=== PATIENT | female | born 1980 | race Two or more races ===

== ENCOUNTER 2024-11-24 21:17 | Emergency (ER) | payer SELFPAY ==
[2024-11-24 21:18] VITALS: BMI 32.8
--- NOTE | 2024-11-24 21:20 | EKG_ITS ---
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
[2024-11-24 21:24] VITALS: BP 148/89; PULSE 100; RESP 26; TEMP 36.7; O2SAT 100
--- NOTE | 2024-11-24 22:18 | XR_ITS ---
Examination: PA chest single view Technique: Upright PA chest single view Exam date and time: November 24, 2024 1022 hrs. Comparison August 07, 2017 Indications: Onset shortness of breath today Findings: Large retrocardiac gastric hernia Normal heart size No lobar pneumonia or pulmonary edema Intact osseous structures Impression: No lobar pneumonia or pulmonary edema
--- NOTE | 2024-11-24 22:18 | PD.EDSOB ---
ED SOB =RME/HPI General Chief Complaint: Shortness of Breath/Dyspnea Stated Complaint: SOB Time Seen by Provider: 11/24/24 22:10 Arrival date/time: 11/24/24 21:17 44F with no significant PMH presents to ED with 1 day of generalized weakness, dizziness, and some SOB, especially when she walks/stands a long time. Patient denies URI symptoms and heavy vaginal bleeding. Limitations: no limitations Related Data Previous Rx's ?Medication ?Instructions ?Recorded ibuprofen 600 mg tablet 600 mg PO Q6-8HRPRN PRN ##30 06/07/13 omeprazole 20 mg capsule,delayed 20 mg PO QDAY 14 days ##0 10/07/16 release Allergies Allergy/AdvReac Type Severity Reaction Status Date / Time NKA* Allergy Uncoded 10/07/16 18:59 Review of Systems Review of Systems Systems Reviewed: All systems reviewed, normal except as documented Constitutional Constitutional: Reports system reviewed and no additional complaints, except as documented, Reports as per HPI, Denies fever(s), Denies headache(s) and Reports weakness ENT Ears, Nose, Mouth, and Throat: Reports as per HPI, Denies disequilibrium, Denies headache(s) and Reports vertigo Cardiovascular Cardiovascular: Reports system reviewed and no additional complaints, except as documented, Denies chest pain and Reports dyspnea Respiratory Respiratory: Reports system reviewed and no additional complaints, except as documented, Reports as per HPI, Denies cough and Reports dyspnea Gastrointestinal Gastrointestinal: Reports system reviewed and no additional complaints, except as documented, Denies abdominal pain, Denies nausea and Denies vomiting Neurologic Neurologic: Reports system reviewed and no additional complaints, except as documented, Denies confusion, Denies disequilibrium, Denies headache(s), Reports vertigo and Reports weakness Psychiatric Psychiatric: Denies confusion Past Medical History Social History SMOKING STATUS: Never smoker ED Exam General Limitations: Present no limitations General appearance: Present alert and in no apparent distress Head Head exam: Present atraumatic Eye Eye exam: Present normal appearance, PERRL and EOMI ENT ENT exam: Present normal exam, normal oropharynx and mucous membranes moist Neck Neck exam: Present normal inspection, full ROM and trachea midline Chest Chest inspection: Present normal inspection and symmetric chest wall rise Respiratory Respiratory exam: Present normal lung sounds bilaterally Cardiovascular Cardiovascular exam: Present regular rate, normal rhythm and normal heart sounds Abdominal Exam Abdominal exam: Present soft and normal bowel sounds Extremities Exam Extremities exam: Present normal inspection and full ROM Back Exam Back exam: Present normal inspection and full ROM Neurological Exam Neurological exam: Present alert, oriented X3 and CN II-XII intact Psychiatric Psychiatric exam: Present normal affect and normal mood Skin Skin exam: Present warm, dry, intact and normal color Course Quality Measures none Orders Category Date Time Status EKG (ED ONLY) *Do not use* NOW Care 11/24/24 21:20 Completed EKG (ED Only) Stat Exams 11/24/24 21:20 Draft XR chest 1V portable Stat Exams 11/24/24 22:18 Ordered CBC Stat Lab 11/24/24 22:10 Ordered CMP [Comprehensive Metabolic Panel] Stat Lab 11/24/24 22:11 Ordered D-Dimer Stat Lab 11/24/24 22:13 Ordered Drug Screen,Urine Stat Lab 11/24/24 22:11 Ordered HCG Qualitative,Urine Stat Lab 11/24/24 22:11 Ordered Troponin I Stat Lab 11/24/24 22:11 Ordered Type and Screen Stat Lab 11/24/24 22:11 Ordered Urinalysis Stat Lab 11/24/24 22:11 Ordered Vital Signs Vital signs: Vital Signs Temperature 98.0 F 11/24/24 21:24 Pulse Rate 100 11/24/24 21:24 Respiratory Rate 26 H 11/24/24 21:24 Blood Pressure 148/89 H 11/24/24 21:24 Pulse Oximetry (%) 100 11/24/24 21:24 Oxygen Delivery Method Room Air 11/24/24 21:24 O2 at 100% on RA and WNLs Shortness of Breath / Dyspnea MDM Narrative MDM Narrative:: 44F with no significant PMH presents to ED with 1 day of generalized weakness, dizziness, and some SOB, especially when she walks/stands a long time. Patient denies URI symptoms and heavy vaginal bleeding. Physical exam reveals normal pupil response and EOM. ENT and lungs clear. CN II-XII grossly intact. Gait normal. Patient is afebrile, calm, and alert. EKG is sinus tach of 105. Patient data External records reviewed:: [facility] previous records Clinical information provided by:: patient Social determinants that could affect healthcare access:: none Patient has the following chronic illnesses:: none How is presenting disease/condition affected by chronic disease/condition?: no chronic disease Evaluation data The following diagnostics were reviewed and interpreted by me:: lab results, radiology exam(s) and EKG tracing(s) Lab and/or radiology exams considered but not ordered:: ordered Interpretation Summary: above Diagnosis Shortness of Breath Differential Diagnosis: acute exacerbation of chronic obstructive airways disease, congestive heart failure, community acquired pneumonia, asthma with exacerbation, pulmonary embolism and other (anemia, CVA/TIA) Discharge Plan Prescriptions/Referrals Prescriptions/Med Rec: No Action ibuprofen 600 MG tablet 600 mg PO Q6-8HRPRN PRNQty: 30 0RF omeprazole 20 MG capsule,delayed release(DR/EC) 20 mg PO QDAY 14 Days Qty: 0 0RF Referrals: No Primary/Family,Physician [Primary Care Provider] - In 1 week Patient/Caregiver Discharge Instructions Print Language: Danish
--- NOTE | 2024-11-24 22:20 | XR_ITS ---
Examination: CT brain head without contrast. 2-D sagittal coronal reconstructions Date and time of exam:November 24, 2024 10:53 PM Indications: Onset weakness today CTDI: vol (mGy):46.5 DLP: (mGycm):878 Technique: Multiple CT axial sections of the brain have been obtained, 5 mm slice thickness. Contrast has not been administered. 2-D sagittal, coronal reconstructions have been obtained Low dose protocols were performed. One or more of the following dose reduction techniques were used; automated exposure control, adjustment of the mA and/or KV according to patient size, use of iterative reconstruction technique. Findings: No significant ventricular enlargement. Intra-axial or extra-axial hemorrhage density is not seen. No mass effect or midline shift Basal cisterns are not remarkable. Fourth ventricle is midline. Cranial vault intact. Large retention cyst in the maxillary antra Impression: Negative for acute hemorrhage, mass effect or midline shift Advise clinical correlation and follow-up accordingly
--- NOTE | 2024-11-24 22:34 | PD.EDRME ---
Rapid Medical Screening Exam [facility] Arrival date/time: 11/24/24 21:17 44F with history of hiatal hernia presents to ED with 1 day of generalized weakness, dizziness, and some SOB, especially when she walks/stands a long time. Patient denies URI symptoms and heavy vaginal bleeding. Chief Complaint: Shortness of Breath/Dyspnea Time Seen by Provider: 11/24/24 22:10 Vital signs: Vital Signs Temperature 98.0 F 11/24/24 21:24 Pulse Rate 100 11/24/24 21:24 Respiratory Rate 26 H 11/24/24 21:24 Blood Pressure 148/89 H 11/24/24 21:24 Pulse Oximetry (%) 100 11/24/24 21:24 Oxygen Delivery Method Room Air 11/24/24 21:24
[2024-11-24 22:46] LABS: Collection Type, Urine Clean Catch
[2024-11-24 22:56] LABS: Bacteria,Urine Rare; Bilirubin,Urine Negative (Negative); Blood,Urine 2+ (Negative); Budding Yeast,Urine Present; Color,Urine Yellow (Lt Yel-Yel); Glucose, Urine Negative (Negative); Ketones,Urine Negative (Negative); Leukocyte Esterase,Urine Negative (Negative); Nitrite,Urine Negative (Negative); PH,Urine 5.5 (5.0-7.0); Protein,Urine Trace (Neg - Trace); RBC,Urine 6 /hpf (0-3); Specific Gravity,Urine 1.022 (1.001-1.035); Squamous Epithelial Cell,Urine 20 /hpf (0-5); WBC,Urine 7 /hpf (0-5)
[2024-11-24 22:57] LABS: Clarity,Urine Turbid (Clear/Hazy); HCG Qualitative,Urine Negative
[2024-11-24 23:00] LABS: Amphetamine/Methamp Scrn,U Negative (Negative); Barbiturate Screen,Urine Negative (Negative); Benzodiazepines Screen,Urine Negative (Negative); Benzoylecgonine Screen, Ur Negative (Negative); Fentanyl Screen,Urine Negative (Negative); Opiate Screen,Urine Negative (Negative); THC Screen,Urine Negative (Negative)
[2024-11-24 23:08] LABS: Basophils # (Auto) 0.1 Thou/mm3 (0.0-0.2); Basophils % (Auto) 1 % (0-2.5); Eosinophils # (Auto) 0.2 Thou/mm3 (0.0-0.5); Eosinophils % (Auto) 2 % (0-10); Immature Granulocytes % (Auto) 1 % (0-0); Immature Granulocytes Auto 0.06 Thou/mm3 (0.00-0.00); Lymphocytes # (Auto) 4.1 Thou/mm3 (1.0-4.8); Lymphocytes % (Auto) 34 % (10-50); Mean Corpuscular HGB Conc 24.1 g/dl (31.0-37.0); Mean Corpuscular Hemoglobin 13.9 pg (25.0-35.0); Mean Corpuscular Volume 58 fL (80-100); Monocytes # (Auto) 0.9 Thou/mm3 (0.0-0.8); Monocytes % (Auto) 8 % (0-12); Neutrophils # (Auto) 6.6 Thou/mm3 (1.8-7.7); Neutrophils % (Auto) 55 % (37-80); Nucleated Red Blood Cell # 0.13 Thou/mm3 (0.00-0.00); Nucleated Red Blood Cell % 1 /100 WBC (0); Platelet Count 673 Thou/mm3 (140-440); RDW Standard Deviation 46.1 fL (36.4-46.3); Red Blood Count 3.52 Miln/mm3 (4.00-5.20); White Blood Count 11.9 Thou/mm3 (3.6-11.0)
[2024-11-24 23:12] LABS: Hematocrit 20.3 % (36.0-46.0); Hemoglobin 4.9 g/dL (12.0-16.0)
--- NOTE | 2024-11-24 23:21 | PC.NURSE ---
Pt to room 4 right now from lobby; assumed care.
[2024-11-24 23:31] VITALS: BP 186/101; PULSE 91; RESP 17; O2SAT 100
--- NOTE | 2024-11-24 23:38 | EDNOTE_ITS ---
ED SOB =RME/HPI General Chief Complaint: Shortness of Breath/Dyspnea Stated Complaint: SOB Time Seen by Provider: 11/24/24 22:10 Source: patient Arrival date/time: 11/24/24 21:17 Mode of arrival: ambulatory Limitations: no limitations RME / HPI RME / HPI Narrative: 11/24/24 21:17 44F with history of hiatal hernia presents to ED with 1 day of generalized weakness, dizziness, and some SOB, especially when she walks/stands a long time. Patient denies URI symptoms and heavy vaginal bleeding. Dr. Tovar?s Main ED Evaluation: 44yo female presents to the ED for complaints of dizziness, lightheadedness, and shortness of breath. 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 She states she sat down, but her symptoms didn't subside, so she came in for evaluation. She denies any bloody/black stools, hematuria, hematemesis, abdominal pain or any other associated symptoms. She states she normally has heavy periods. She denies any history of anemia or previous blood transfusions. No known allergies. PCP: [facility] Related Data Previous Rx's ?Medication ?Instructions ?Recorded ibuprofen 600 mg tablet 600 mg PO Q6-8HRPRN PRN ##30 06/07/13 omeprazole 20 mg capsule,delayed 20 mg PO QDAY 14 days ##0 10/07/16 release Allergies Allergy/AdvReac Type Severity Reaction Status Date / Time NKA* Allergy Uncoded 10/07/16 18:59 Review of Systems Review of Systems Systems Reviewed: All systems reviewed, normal except as documented Past Medical History Social History SMOKING STATUS: Never smoker ED Exam Narrative Physical exam: GENERAL APPEARANCE: alert and oriented x 4, well-developed, well-nourished, no acute distress VITALS: All vitals were reviewed and the pulse ox is 100% on room air, which is normal according to my interpretation. HEENT: Normocephalic, atraumatic; pupils equal, round, reactive to light; EOMI; pale conjunctiva; mucous membranes pale, moist; oropharynx clear NECK: Supple LUNGS: CTABL; no wheezes, no rales, no rhonchi HEART: Regular rate, regular rhythm; normal S1, S2; no murmurs ABDOMEN: non distended; normal BS; soft, no tenderness, no guarding, no rebound; no masses, no organomegaly, no hernia BACK: no CVA tenderness EXTREMITIES: atraumatic; no edema NEUROLOGIC: awake; alert and oriented x4; cranial nerves II-XII grossly intact; no focal sensory or motor deficits PSYCHIATRIC: appropriate mood and affect SKIN: warm, dry, normal color; no rashes General Limitations: Present no limitations Course Quality Measures none Orders Category Date Time Status Mva Still Operator Q4H START 00 Care 11/24/24 23:57 Completed Continuous Pulse Oximetry NOW Care 11/24/24 23:57 Completed EKG (ED ONLY) *Do not use* NOW Care 11/24/24 21:20 Completed Transfuse,blood/blood products NOW Care 11/24/24 23:[address] head/brain wo con Stat Exams 11/24/24 22:20 Completed EKG (ED Only) Stat Exams 11/24/24 21:20 Draft XR chest 1V portable Stat Exams 11/24/24 22:18 Completed BNP [B-Type Natriuretic Peptide] Stat Lab 11/24/24 22:40 Completed CBC Stat Lab 11/24/24 22:40 Completed CMP [Comprehensive Metabolic Panel] Stat Lab 11/24/24 22:40 Completed Drug Screen,Urine Stat Lab 11/24/24 22:39 Completed Ferritin Stat Lab 11/24/24 23:56 Completed HCG Qualitative,Urine Stat Lab 11/24/24 22:39 Completed Path Review Blood Smear Stat Lab 11/24/24 22:40 Completed Reticulocyte Count Stat Lab 11/24/24 23:56 Completed TIBC [Total Iron Binding Capacity] Stat Lab 11/24/24 23:56 Completed Troponin I Stat Lab 11/24/24 22:40 Completed Type and Screen Stat Lab 11/24/24 22:40 Completed Urinalysis Stat Lab 11/24/24 22:39 Completed prbc [Red Blood Cells] Stat Lab 11/24/24 22:40 Completed Vital Signs Vital signs: Vital Signs Temperature 98.0 F 11/24/24 21:24 Pulse Rate 100 11/24/24 21:24 Respiratory Rate 26 H 11/24/24 21:24 Blood Pressure 148/89 H 11/24/24 21:24 Pulse Oximetry (%) 100 11/24/24 21:24 Oxygen Delivery Method Room Air 11/24/24 21:24 Shortness of Breath / Dyspnea MDM Narrative MDM Narrative:: Scribe Attestation: 11/24/24 - Bernie Headley am scribing for and in the presence of Dr. Tovar. 0600 Care signed out to Dr. Rm. Past medical, surgical, social and family history reviewed. Vitals and home medications reviewed. Results and treatment plan discussed. I will assume the care of the patient at this time and will follow the patient, pending completion of blood transfusion and final disposition. Patient data External records reviewed:: [facility] previous records (Per chart review, patient has no previous ED visits or admissions to this facility.) Clinical information provided by:: patient Social determinants that could affect healthcare access:: none Patient has the following chronic illnesses:: none How is presenting disease/condition affected by chronic disease/condition?: no chronic disease Evaluation data The following diagnostics were reviewed and interpreted by me:: lab results, radiology exam(s) and EKG tracing(s) Lab and/or radiology exams considered but not ordered:: none Interpretation Summary: WBC count is 11.9, HnH is low at 4.9/20.3, Platelets are 673, UA xx, UDS is negative, according to my interpretation. EKG done at 2124, sinus tachycardia, rate of 105, normal axis, no ectopy, no acute ischemia, according to my interpretation. [facility] Report Signed Patient: PALMER BURKS [facility]. Record#: [id number] Birthdate: 1980 Age/Sex: 44 / F Location: [facility] Attending Dr: Ordering Physician: Ayush Cruz PA-C Date of Service: 11/24/24 Procedure(s): XR chest 1V portable Accession Number(s): [id number] cc: Brice Tatum MD; NO PRIMARY/FAMILY,PHYSICIAN; Ayush Cruz PA-C~ Examination: PA chest single view Technique: Upright PA chest single view Exam date and time: November 24, 2024 1022 hrs. Comparison August 07, 2017 Indications: Onset shortness of breath today Findings: Large retrocardiac gastric hernia Normal heart size No lobar pneumonia or pulmonary edema Intact osseous structures Impression: No lobar pneumonia or pulmonary edema Dictated By: Brice Tatum MD Signed By: <Electronically signed by Brice Tatum MD in [place]> 11/24/24 2314 [facility] Report Signed Patient: PALMER BURKS Record#: [id number] Birthdate: 1980 Age/Sex: 44 / F [facility] Attending Dr: Ordering Physician: Ayush Cruz PA-C Date of Service: 11/24/24 Procedure(s): CT head/brain wo con Accession Number(s): [id number] cc: Brice Tatum MD; NO PRIMARY/FAMILY,PHYSICIAN; Ayush Cruz PA-C~ Examination: CT brain head without contrast. 2-D sagittal coronal reconstructions Date and time of exam:November 24, 2024 10:53 PM Indications: Onset weakness today CTDI: vol (mGy):46.5 DLP: (mGycm):878 Technique: Multiple CT axial sections of the brain have been obtained, 5 mm slice thickness. Contrast has not been administered. 2-D sagittal, coronal reconstructions have been obtained Low dose protocols were performed. One or more of the following dose reduction techniques were used; automated exposure control, adjustment of the mA and/or KV according to patient size, use of iterative reconstruction technique. Findings: No significant ventricular enlargement. Intra-axial or extra-axial hemorrhage density is not seen. No mass effect or midline shift Basal cisterns are not remarkable. Fourth ventricle is midline. Cranial vault intact. Large retention cyst in the maxillary antra Impression: Negative for acute hemorrhage, mass effect or midline shift Advise clinical correlation and follow-up accordingly Dictated By: Brice Tatum MD Signed By: <Electronically signed by Brice Tatum MD in OV> 11/24/24 2310 Medications / Prescriptions Medications or Prescriptions considered but not ordered:: none Medication administrations:: 3U PRBCs Consultations Consultation(s) initiated? (list below): No Diagnosis Shortness of Breath Differential Diagnosis: other (iron deficiency anemia, sideroblastic anemia, hemolytic anemia) Most likely diagnosis given after review of the tests above:: see clinical impression below Admission Indicated Admission indicated?: not indicated Admission Request Was there a request for admission?: No Disposition Plan Disposition Plan: Discharge Discharge Attestation Discharge Attestation: The patient and all family members were given an opportunity to ask questions and understood the discharge instructions. Discharge instructions specifically effects, indications for sooner follow up or return to the emergency department, and the expected course of current diagnosis. Patient condition: Stable Discharge Plan Plan Patient Disposition: HOME (Self Care) Prescriptions/Referrals Prescriptions/Med Rec: No Action ibuprofen 600 MG tablet 600 mg PO Q6-8HRPRN PRNQty: 30 0RF omeprazole 20 MG capsule,delayed release(DR/EC) 20 mg PO QDAY 14 Days Qty: 0 0RF Referrals: No Primary/Family,Physician [Primary Care Provider] - In 1 week Problem List Clinical Impression: Severe anemia, Dysfunctional uterine bleeding, Dizziness Patient/Caregiver Discharge Instructions Education Materials: Anemia, ED Dysfunctional Uterine Bleeding Additional Instructions: Follow up with your doctor within 2-3 days for reassessment. Return if your symptoms worsen. Print Language: [place]ralt[place] Stand Alone Forms: [facility]isa Award Info., Patient Portal Info Letter
[2024-11-24 23:42] LABS: Alanine Aminotransferase 24 U/L (10-49); Albumin, Serum 4.3 gm/dL (3.5-5.0); Albumin/Globulin Ratio 1.3 (1.2-2.2); Alkaline Phosphatase 177 U/L (46-116); Anion Gap 15 (7-16); Aspartate Amino Transferase 27 U/L (0-34); BUN/Creatinine Ratio 13 Ratio (12-20); Bilirubin,Total 0.7 mg/dL (0.3-1.2); Blood Urea Nitrogen 13 mg/dL (9-23); Calcium 9.5 mg/dL (8.3-10.6); Calcium (Corrected) 9.5 mg/dL (8.5-10.1); Carbon Dioxide 17.8 mMol/L (20.0-31.0); Chloride 105 mMol/L (98-107); Estimated Creatinine Clearance 80.9 mL/min (>60); Globulin 3.4 gm/dL (2.3-3.5); Glucose 101 mg/dL (74-106); Osmolality,Calculated 275 (275-295); Sodium 138 mMol/L (136-145); Total Protein 7.7 gm/dL (5.7-8.2); Troponin I < 0.020 ng/mL (0.0-0.045); eGFR > 60 See Note
--- NOTE | 2024-11-24 23:46 | PC.NURSE ---
Dr. Tovar at the bedside.
[2024-11-24 23:56] LABS: B-Type Natriuretic Peptide 64 pg/mL (0-100)
[2024-11-25] VITALS (14 sets, daily range): BP systolic 128–161; BP diastolic 69–107; PULSE 72–87; RESP 16–20; TEMP 36.6–37.2; O2SAT 100
[2024-11-25 00:25] LABS: Immature Reticulocyte Fraction 36.8 % (3.0-15.9); Reticulocyte % (Auto) 2.7 % (0.5-1.5); Reticulocyte Absolute Auto 89.4 Biln/L (25.0-75.0); Reticulocyte Hgb Content 13.8 pg (28.0-35.0)
[2024-11-25 00:59] LABS: Path Review Blood Smear Sent to Pathologist
[2024-11-25 01:47] LABS: Ferritin 1 ng/mL (7.3-270.7); Total Iron Binding Capacity 398 mcg/dL (250-425)
--- NOTE | 2024-11-25 06:28 | PC.NURSE ---
MD informed blood transfusion is complete.
== END 2024-11-25 07:05 | disposition home or self-care (01) ==
PROVIDERS: Physician Assistant; Emergency Provider Emergency Medicine
DX: D64.9 Anemia, unspecified (principal); N93.8 Other specified abnormal uterine and vaginal bleeding; R42 Dizziness and giddiness
CPT/HCPCS: 36415; 36430; 70450; 71045; 80053; 80307; 81001; 81025; 82728; 83550; 83880; 84484; 85025; 85046; 85379; 86850; 86900; 86901; 86923; 93005; 99285; P9016

== ENCOUNTER 2025-08-29 11:47 | Emergency (ER) | payer MEDICAID, SELFPAY ==
[2025-08-29] VITALS (12 sets, daily range): BP systolic 101–136; BP diastolic 60–102; PULSE 81–113; RESP 14–20; TEMP 36.6–37.1; O2SAT 100; BMI 39.2
--- NOTE | 2025-08-29 12:45 | PD.EDDIZZY ---
ED Dizzyness RME/HPI General Chief Complaint: Dizziness Stated Complaint: DIZZY, SOB W/ AMB X 1 DAY Time Seen by Provider: 08/29/25 12:45 Arrival date/time: 08/29/25 11:47 RME / HPI RME / HPI Narrative: See MDM for HPI documentation. Related Data Previous Rx's ?Medication ?Instructions ?Recorded ibuprofen 600 mg tablet 600 mg PO Q6-8HRPRN PRN ##30 06/07/13 omeprazole 20 mg capsule,delayed 20 mg PO QDAY 14 days ##0 10/07/16 release ferrous sulfate 325 mg (65 mg 325 mg PO BID #180 tabs 08/29/25 iron) tablet Review of Systems Review of Systems Systems Reviewed: All systems reviewed, normal except as documented ED Exam Narrative Physical exam: See MDM for Exam documentation. Course Quality Measures none Orders Category Date Time Status EKG (ED ONLY) *Do not use* NOW Care 08/29/25 12:47 Completed Saline [Insert IV] NOW Care 08/29/25 14:02 Completed Transfuse,blood/blood products NOW Care 08/29/25 14:[address] head/brain wo con Stat Exams 08/29/25 12:46 Completed EKG (ED Only) Stat Exams 08/29/25 12:47 Draft XR chest 1V portable Stat Exams 08/29/25 12:47 Completed BNP [B-Type Natriuretic Peptide] Stat Lab 08/29/25 13:11 Completed Bilirubin,Direct Stat Lab 08/29/25 13:11 Completed CBC Stat Lab 08/29/25 13:11 Completed CMP [Comprehensive Metabolic Panel] Stat Lab 08/29/25 13:11 Completed D-Dimer Stat Lab 08/29/25 13:11 Completed HCG,Qualitative Serum Stat Lab 08/29/25 13:11 Completed Magnesium Stat Lab 08/29/25 13:11 Completed Path Review Blood Smear Stat Lab 08/29/25 13:11 Completed TSH [Thyroid Stimulating Hormone] Stat Lab 08/29/25 13:11 Completed Troponin I Stat Lab 08/29/25 13:11 Completed Type and Screen Stat Lab 08/29/25 14:39 Completed UA, C/S IF [Urinalysis, C/S if Indicated] Stat Lab 08/29/25 13:14 Completed prbc [Red Blood Cells] Stat Lab 08/29/25 14:39 Completed Meclizine HCl [Antivert] Med 08/29/25 12:46 Discontinued 25 mg PO X1 ONE Ondansetron Odt [Zofran Odt] Med 08/29/25 12:46 Discontinued 4 mg PO X1 ONE Scopolamine [Transderm-Scop Patch] Med 08/29/25 12:46 Discontinued 1 mg TOP X1 ONE Vital Signs Vital signs: Vital Signs Temperature 98.1 F 08/29/25 12:32 Pulse Rate 113 H 08/29/25 12:32 Respiratory Rate 18 08/29/25 12:32 Blood Pressure 122/76 08/29/25 12:32 Pulse Oximetry (%) 100 08/29/25 12:32 Oxygen Delivery Method Room Air 08/29/25 12:32 Dizziness MDM Narrative MDM Narrative:: This section includes all my notes and documentations, including HPI, PE, and ED course. Magdy Hall MD HPI: 45-year-old female who here with dizziness since yesterday, worse with getting up. Reports feeling like being seasick with nausea and vomiting and shortness of breath. No other complaints. ROS: All negative except as documented in HPI. Physical Exam: General: Alert and oriented. No acute distress when remaining still. Eyes: Conjunctivae and lids clear. EOMI. PERRL. ENT: No nasal congestion. Pharynx normal. Tympanic membrane normal bilaterally. Neck: Supple. No carotid bruit. No JVD. Heart: Tachycardia with regular rhythm. Lungs: No respiratory distress. Good air movement. No rhonchi, wheezing, rales. Abdomen: Soft and nontender. Normal bowel sounds. No distension. No rebound or guarding. Back: No CVA tenderness. Legs: No clubbing, cyanosis, edema. Skin: Warm and dry. Neuro: Alert and oriented X 3. Cranial Nerves II-XII grossly intact. No peripheral motor deficits. I reviewed EMS and shelter notes. I reviewed all diagnostic test results: My interpretation of the EKG is sinus tachcardia (110 bpm) with nonspecific ST-T changes. My interpretation of the chest x-ray is NAD. My review of the head CT report is NAD. Blood tests and urine tests remarkable for 5.2. At this point, diagnoses include: Severe anemia Treatment here included: Zofran ODT & Meclizine & Scopolamine patch before diagnostics (no improvement noted) Two units of pRBC (she felt much better) Recommended more outpatient care and workup. Based on my best medical judgment, made decision no further evaluation or treatment indicated at this time. Patient understands and agrees to the discharge instructions customized and printed, see below. Discharge Instructions from Dr. Hall printed for you: 1. After extensive evaluation, there is stroke or brain tumor or heart attack. 2. You were given blood transfusion for severe anemia. 3. Your body needs iron to make red blood cells which carry oxygen and nutrition to your organs. Take iron pills as prescribed. Increase food rich in iron. Such as red meat and egg yolks and seaweed. 4. See your private doctor this coming week to continue investigation to find the cause of your blood loss. Including EGD or scoping the stomach, colonoscopy or scoping the colon, and referrals to see specialists (such as clam dredge boat captain, hospice volunteer coordinator, and research software engineer or blood specialist). 5. Seek immediate medical care with worsening or with any concerns. Magdy Hall MD Patient data External records reviewed:: [facility] previous records Clinical information provided by:: patient Social determinants that could affect healthcare access:: none Patient has the following chronic illnesses:: Anemia How is presenting disease/condition affected by chronic disease/condition?: exacerbated by Evaluation data The following diagnostics were reviewed and interpreted by me:: lab results, radiology exam(s) and EKG tracing(s) (My interpretation of the EKG is sinus tachcardia (110 bpm) with nonspecific ST-T changes. ) Lab and/or radiology exams considered but not ordered:: none Interpretation Summary: I reviewed all diagnostic test results: My interpretation of the EKG is sinus tachcardia (110 bpm) with nonspecific ST-T changes. My interpretation of the chest x-ray is NAD. My review of the head CT report is NAD. Blood tests and urine tests remarkable for 5.2. Medications / Prescriptions Medications or Prescriptions considered but not ordered:: none Medication administrations:: Medication Administration History Discontinued Medications Meclizine HCl (Meclizine Hcl 25 Mg Tablet) 25 mg PO X1 ONE Stop: 08/29/25 12:47 Ondansetron HCl (Ondansetron Odt 4 Mg Tabrap) 4 mg PO X1 ONE; Protocol Stop: 08/29/25 12:47 Scopolamine (Scopolamine 1 Mg Tdsy) 1 mg TOP X1 ONE Stop: 08/29/25 12:47 Treatment here included: Zofran ODT & Meclizine & Scopolamine patch before diagnostics (no improvement noted) Two units of pRBC (she felt much better) Consultations Consultation(s) initiated? (list below): No Diagnosis Dizziness Differential Diagnosis: benign paroxysmal positional vertigo, orthostatic hypotension, vertebral basilar insufficiency, cerebrovascular accident and transient cerebral ischemia Most likely diagnosis given after review of the tests above:: Severe anemia Admission Indicated Admission indicated?: indicated Explain why admission is indicated or not indicated:: With significant improvement and no condition needing emergent intervention, there was no indication for admission. Admission Request Was there a request for admission?: No Disposition Plan Disposition Plan: Discharge Discharge Attestation Discharge Attestation: The patient and all family members were given an opportunity to ask questions and understood the discharge instructions. Discharge instructions specifically effects, indications for sooner follow up or return to the emergency department, and the expected course of current diagnosis. Patient condition: Stable Discharge Plan Plan Patient Disposition: HOME (Self Care) Prescriptions/Referrals Prescriptions/Med Rec: New ferrous sulfate 325 mg (65 mg iron) tablet 325 mg PO BID Qty: 180 1RF No Action ibuprofen 600 MG tablet 600 mg PO Q6-8HRPRN PRNQty: 30 0RF omeprazole 20 MG capsule,delayed release(DR/EC) 20 mg PO QDAY 14 Days Qty: 0 0RF Referrals: Juan C Leung MD [Primary Care Provider, Family Practice] - In 1 week Problem List Clinical Impression: Severe anemia Patient/Caregiver Discharge Instructions Discharge Activity: activity as tolerated Education Materials: ED Anemia Type Not Specified Additional Instructions: Discharge Instructions from Dr. Hall printed for you: 1. After extensive evaluation, there is stroke or brain tumor or heart attack. 2. You were given blood transfusion for severe anemia. 3. Your body needs iron to make red blood cells which carry oxygen and nutrition to your organs. Take iron pills as prescribed. Increase food rich in iron. Such as red meat and egg yolks and seaweed. 4. See your private doctor this coming week to continue investigation to find the cause of your blood loss. Including EGD or scoping the stomach, colonoscopy or scoping the colon, and referrals to see specialists (such as clam dredge boat captain, hospice volunteer coordinator, and research software engineer or blood specialist). 5. Seek immediate medical care with worsening or with any concerns. Print Language: Khmer Stand Alone Forms: [employer]isa Award Info., Patient Portal Info Letter
--- NOTE | 2025-08-29 12:46 | XR_ITS ---
Examination: CT brain head without contrast. 2-D sagittal coronal reconstructions Date and time of exam: August 29, 2025, 1220 hours INDICATIONS: Dizziness headache today CTDI: vol (mGy): 46.6 DLP: (mGycm): 952 Technique: Multiple CT axial sections of the brain have been obtained, 5 mm slice thickness. Contrast has not been administered. 2-D sagittal, coronal reconstructions have been obtained Low dose protocols were performed. One or more of the following dose reduction techniques were used; automated exposure control, adjustment of the mA and/or KV according to patient size, use of iterative reconstruction technique. Findings: No significant ventricular enlargement. Intra-axial or extra-axial hemorrhage density is not seen. No mass effect or midline shift Basal cisterns are not remarkable. Fourth ventricle is midline. Cranial vault intact. Impression: Negative for acute hemorrhage, mass effect or midline shift Advise clinical correlation and follow-up accordingly
--- NOTE | 2025-08-29 12:47 | EKG_ITS ---
[facility] Test Date: 2025-08-29 Pat Name: PALMER BURKS Department: Room: - Gender: Female Certified Orthotist: : [id number] Requested By: Magdy Lane Order Number: [id number] Reading MD: Magdy Lane Measurements Intervals [place] Rate: 110 P: 1 SC: 116 QRS: 22 QRSD: 90 T: -5 QT: 339 QTc: 460 Interpretive Statements SINUS TACHYCARDIA WITH SHORT SC INTERVAL NONSPECIFIC T-WAVE ABNORMALITY ABNORMAL RHYTHM ECG Compared to ECG 11/24/2024 21:25:23 Short SC interval now present T-wave abnormality still present /store/S0/[id number].pdf
--- NOTE | 2025-08-29 12:47 | XR_ITS ---
EXAMINATION: AP chest single view TECHNIQUE: Sitting AP portable chest single view Date and time: August 29, 2025, 12:54 p.m. INDICATIONS: Shortness of breath today. FINDINGS: Mild prominence left ventricle No pneumonia or pulmonary edema Mild osteopenia IMPRESSION: No pneumonia or pulmonary edema
[2025-08-29 13:19] LABS: Collection Type, Urine Clean Catch
[2025-08-29 13:26] LABS: Basophils # (Auto) 0.1 Thou/mm3 (0.0-0.2); Basophils % (Auto) 1 % (0-2.5); Eosinophils # (Auto) 0.1 Thou/mm3 (0.0-0.5); Eosinophils % (Auto) 1 % (0-10); Immature Granulocytes Auto 0.05 Thou/mm3 (0.00-0.00); Lymphocytes # (Auto) 1.8 Thou/mm3 (1.0-4.8); Lymphocytes % (Auto) 19 % (10-50); Mean Corpuscular HGB Conc 26.8 g/dl (31.0-37.0); Mean Corpuscular Hemoglobin 16.0 pg (25.0-35.0); Mean Corpuscular Volume 60 fL (80-100); Monocytes # (Auto) 0.6 Thou/mm3 (0.0-0.8); Monocytes % (Auto) 6 % (0-12); Neutrophils # (Auto) 6.8 Thou/mm3 (1.8-7.7); Neutrophils % (Auto) 72 % (37-80); Nucleated Red Blood Cell # 0.04 Thou/mm3 (0.00-0.00); Nucleated Red Blood Cell % 0 /100 WBC (0); Platelet Count 487 Thou/mm3 (140-440); RDW Standard Deviation 45.9 fL (36.4-46.3); Red Blood Count 3.26 Miln/mm3 (4.00-5.20); White Blood Count 9.4 Thou/mm3 (3.6-11.0)
[2025-08-29 13:39] LABS: D-Dimer < 250 ng/mL (<600)
[2025-08-29 13:43] LABS: B-Type Natriuretic Peptide < 20 pg/mL (0-100)
[2025-08-29 13:46] LABS: Alanine Aminotransferase 23 U/L (10-49); Albumin, Serum 3.9 gm/dL (3.5-5.0); Albumin/Globulin Ratio 1.3 (1.2-2.2); Alkaline Phosphatase 132 U/L (46-116); Anion Gap 12 (7-16); Aspartate Amino Transferase 17 U/L (0-34); BUN/Creatinine Ratio 26 Ratio (12-20); Bilirubin,Direct 0.2 mg/dL (0.0-0.3); Bilirubin,Total 0.6 mg/dL (0.3-1.2); Blood Urea Nitrogen 23 mg/dL (9-23); Calcium 8.2 mg/dL (8.3-10.6); Calcium (Corrected) 8.3 mg/dL (8.5-10.1); Carbon Dioxide 21.1 mMol/L (20.0-31.0); Chloride 108 mMol/L (98-107); Creatinine (Component) 0.9 mg/dL (0.6-1.3); Estimated Creatinine Clearance 98.0 mL/min (>60); Globulin 3.0 gm/dL (2.3-3.5); Glucose 131 mg/dL (74-106); Magnesium 1.7 mg/dL (1.6-2.6); Osmolality,Calculated 286 (275-295); Potassium 3.8 mMol/L (3.4-5.1); Sodium 141 mMol/L (136-145); Thyroid Stimulating Hormone 0.80 uIU/mL (0.55-4.78); Total Protein 6.9 gm/dL (5.7-8.2); Troponin I < 0.020 ng/mL (0.0-0.045); eGFR > 60 See Note
[2025-08-29 13:48] LABS: Hematocrit 19.4 % (36.0-46.0)
[2025-08-29 13:48] LABS: Bacteria,Urine Rare; Bilirubin,Urine Negative (Negative); Blood,Urine 3+ (Negative); Clarity,Urine Turbid (Clear/Hazy); Color,Urine Lt-Yellow (Lt Yel-Yel); Culture Indicated,Urine Contaminated; Glucose, Urine Negative (Negative); Ketones,Urine Negative (Negative); Leukocyte Esterase,Urine Positive (Negative); Nitrite,Urine Negative (Negative); PH,Urine 5.5 (5.0-7.0); Protein,Urine Trace (Neg - Trace); RBC,Urine 490 /hpf (0-3); Specific Gravity,Urine 1.024 (1.001-1.035); Squamous Epithelial Cell,Urine 13 /hpf (0-5); Urobilinogen,Urine Negative mg/dL (0.0-1.0); WBC,Urine 14 /hpf (0-5)
[2025-08-29 13:49] LABS: Hemoglobin 5.2 g/dL (12.0-16.0)
[2025-08-29 13:53] LABS: Path Review Blood Smear Sent to Pathologist
[2025-08-29 14:35] LABS: HCG,Qualitative Serum Negative
== END 2025-08-29 22:18 | disposition home or self-care (01) ==
PROVIDERS: Emergency Provider Emergency Medicine; PCP Family Medicine
DX: D64.9 Anemia, unspecified (principal); R42 Dizziness and giddiness; R51.9 Headache, unspecified; R06.02 Shortness of breath; R00.0 Tachycardia, unspecified
CPT/HCPCS: 36415; 36430; 70450; 71045; 80053; 81001; 82248; 83735; 83880; 84443; 84484; 84703; 85014; 85018; 85025; 85379; 86850; 86900; 86901; 86923; 93005; 99284; P9016